=== PATIENT | female | born 1970 | race Caucasian/White ===

== ENCOUNTER 2020-08-05 08:45 | Inpatient (IN) ==
[2020-08-05] MEDS ORDERED: 0.9 % Sodium Chloride 1,000 ML ONE (09:09)
[2020-08-05] MEDS ORDERED: ISOVUE-370 200 ML INFUS..BTL ONE ×2 (09:10→10:40)
[2020-08-05] MEDS ORDERED: *HR* Heparin 10,000 UNIT/10 ML VIAL ONE (09:10)
[2020-08-05] MEDS ORDERED: *HR* Atropine Sulfate 1 MG/10 ML SYRINGE ONE ×2 (09:10→14:32)
[2020-08-05] MEDS ORDERED: Heparin 1,000 UNITS/500 mL 500 ML ONE (09:10)
[2020-08-05] MEDS ORDERED: Nitroglycerin 1,000 MCG/10 ML VIAL IV ONE (09:10)
[2020-08-05] MEDS ORDERED: *HR* Midazolam HCl 2 MG/2 ML VIAL ONE (09:28)
[2020-08-05] MEDS ORDERED: *HR* FentaNYL (PF) 100 MCG/2 ML VIAL ONE (09:29)
[2020-08-05] MEDS ORDERED: Naloxone 0.4 MG/ML INJ IVP PRN (12:48)
[2020-08-05] MEDS ORDERED: Perflutren Lipid Microsphere 1.3 ML in 0.9 % Sodium Chloride 8.7 ML IVP PRN (12:53)
[2020-08-05] MEDS ORDERED: Ondansetron 4 MG/2 ML VIAL IVP PRN (13:21)
[2020-08-05] MEDS ORDERED: Acetaminophen 325 MG TABLET PO PRN (13:21)
[2020-08-05] MEDS: *HR* Heparin 5,000 UNIT/ML VIAL SQ SCH (18:12)
[2020-08-05] MEDS: carvediloL 6.25 MG TABLET PO SCH (18:12)
[2020-08-05] MEDS: *HR* Ticagrelor 90 MG TABLET PO SCH (19:41)
[2020-08-06] MEDS: *HR* Heparin 5,000 UNIT/ML VIAL SQ SCH ×2 (05:35→18:03)
[2020-08-06] MEDS ORDERED: PARoxetine 20 MG TABLET PO SCH (09:00)
[2020-08-06] MEDS ORDERED: Aspirin Enteric Coated 81 MG Tablet PO SCH (09:00)
[2020-08-06] MEDS: carvediloL 6.25 MG TABLET PO SCH ×2 (09:35→18:03)
[2020-08-06] MEDS: *HR* Ticagrelor 90 MG TABLET PO SCH ×2 (09:35→20:12)
[2020-08-06 09:59] LABS: Basophils % 0.2 %; Eosinophils # 0.1 K/mcL (0.0-0.6); Eosinophils % 0.6 %; Hematocrit 36.5 % (35.3-44.9); Hemoglobin 11.8 g/dL (11.5-15.4); Immature Granulocytes % 0.2 % (0-4); Lymphocytes # 3.2 K/mcL (0.6-4.6); Lymphocytes % 33.9 %; Mean Corpuscular HGB Conc 32.3 g/dL (31.6-35.5); Mean Corpuscular Hemoglobin 29.4 pg (28.0-33.3); Mean Corpuscular Volume 90.8 fL (83.0-100.0); Mean Platelet Volume 9.7 fL (9.4-12.4); Monocytes # 0.7 K/mcL (0.0-1.3); Monocytes % 6.8 %; Platelet Count 293 K/mcL (140-400); Red Blood Count 4.02 M/mcL (3.82-4.97); Red Cell Distribution Width 12.7 % (11.5-14.5); Segmented Neutrophils % 58.3 %; White Blood Count 9.5 K/mcL (4.3-11.1)
[2020-08-06 10:04] LABS: Neutrophils # 5.5 K/mcL (1.6-8.9)
[2020-08-06 10:08] LABS: BUN/Creatinine Ratio 19 (6-26); Blood Urea Nitrogen 15 mg/dL (6-20); Calcium 8.9 mg/dL (8.6-10.3); Carbon Dioxide 24 mEq/L (23-29); Chloride 106 mEq/L (98-107); Glucose 114 mg/dL (70-105); Osmolality,Calculated 288 (280-300); Potassium 3.5 mEq/L (3.5-5.1); Sodium 138 mEq/L (136-145); eGFR For African Americans > 60 (> 60); eGFR For Non-African Americans > 60 (> 60)
[2020-08-06] MEDS ORDERED: Ondansetron 4 MG/2 ML VIAL IVP PRN (18:53)
[2020-08-06] MEDS ORDERED: Acetaminophen 325 MG TABLET PO PRN (18:53)
[2020-08-06] MEDS ORDERED: Perflutren Lipid Microsphere 1.3 ML in 0.9 % Sodium Chloride 8.7 ML IVP PRN (18:53)
[2020-08-06] MEDS ORDERED: Naloxone 0.4 MG/ML INJ IVP PRN (18:53)
[2020-08-07] MEDS: *HR* Heparin 5,000 UNIT/ML VIAL SQ SCH ×2 (06:07→18:04)
[2020-08-07] MEDS ORDERED: carvediloL 6.25 MG TABLET PO SCH (08:00)
[2020-08-07] MEDS: Aspirin Enteric Coated 81 MG Tablet PO SCH (08:08)
[2020-08-07] MEDS: *HR* Ticagrelor 90 MG TABLET PO SCH ×2 (08:08→21:38)
[2020-08-07] MEDS: PARoxetine 20 MG TABLET PO SCH (08:09)
[2020-08-08] MEDS: *HR* Heparin 5,000 UNIT/ML VIAL SQ SCH (06:18)
[2020-08-08] MEDS: *HR* Ticagrelor 90 MG TABLET PO SCH (08:24)
[2020-08-08] MEDS: Aspirin Enteric Coated 81 MG Tablet PO SCH (08:24)
[2020-08-08] MEDS: PARoxetine 20 MG TABLET PO SCH (08:24)
[2020-08-08] MEDS ORDERED: Metoprolol XL (24 HR) Succ 25 MG TAB.ER.24H PO SCH (09:00)
[2020-08-08 09:02] VITALS: BP 120/75
== END 2020-08-08 11:50 | disposition home or self-care (01) | DRG 247 ==
LOC: ICNU 11:21
PROVIDERS: ADMIT Family Medicine; ATTEND Family Medicine